=== PATIENT | female | born 1935 | race Caucasian/White ===

== ENCOUNTER 2017-03-08 09:35 | Observation (INO) | payer MEDICARE ==
[2017-03-08] VITALS (7 sets, daily range): BP systolic 136–203; BP diastolic 67–106; PULSE 65–93; RESP 15–18; TEMP 97.6–97.8; O2SAT 95–99
[~2017-03-08] VITALS: Ht 160 cm; Wt 64.0 kg
[~2017-03-08 09:35] MED LIST: ALEN70TA39 PO; ARIC10TA PO; CALCTAB38 PO; CYAN1000P SQ; METO50TA PO; VITA200017 PO
[2017-03-08] MEDS ORDERED: SODIUM CHLORIDE 0.9% FLUSH 5 ML FLUSH IV FLUSH PRN (10:15)
--- NOTE | 2017-03-08 10:24 | PD ---
HPI Chief Complaint: Altered Mental Status Time Seen by Provider: 10:05 Travel History International Travel<30 days: No Contact w/Intl Traveler<30days: No Traveled to known affect area: No History of Present Illness HPI This is an 81-year-old female with a history of Alzheimer's dementia, who presents with her daughter with complaints of worsening mental status changes over one and half weeks. Daughter states that over the last week and a half, she's become progressively more confused and not acting her normal self. Daughter also reports that she's concerned that she is a danger to herself. Daughter reports that this morning they found her out with her for be in the street in the cold weather. She states that she and the mother's significant other are trying to care for over having a much more difficult time since she is now much more confused and wandering off. There is no reported fevers, chills. There is no reported cough or shortness of breath. Daughter reports that her mother's only been eating hot dogs for several months now. She reports that they're seen by Dr. Sapp who ordered an outpatient MRI and EEG. She is concerned that she may be having mini strokes or TIAs. PFSH Past Medical History Asthma: No Autoimmune Disease: No Blood Disorders: No Anxiety: No Depression: No Heart Rhythm Problems: No Cancer: No Cardiac Catheterization: No Cardiovascular Problems: Yes (STENTS X 2, RI) High Cholesterol: No Chemotherapy: No Chest Pain: Yes Congestive Heart Failure: No COPD: No Cerebrovascular Accident: No Diabetes: No Diminished Hearing: No Endocrine: No Gastrointestinal Disorders: Yes (DIVERTICULITIS) GERD: No Glaucoma: No Genitourinary: No Headaches: No Hepatitis: No Hiatal Hernia: No Hypertension: Yes Immune Disorder: No Kidney Stones: No Musculoskeletal: Yes (LEFT KNEE ARTHRITIS) Neurologic: Yes (FORGETFUL--ON ARICEPT) Psychiatric: No Reproductive: No Respiratory: No Migraines: No Myocardial Infarction: No Radiation Therapy: No Renal Failure: No Seizures: No Sickle Cell Disease: No Sleep Apnea: No Thyroid Disease: No Ulcer: No Past Surgical History Abdominal Surgery: Yes (POLYPS REMOVED DURING A COLONOSCOPY) AICD: No Appendectomy: No Arteriovenous Shunt: No Cardiac Surgery: No Cholecystectomy: No Coronary Artery Bypass Graft: No Ear Surgery: No Endocrine Surgery: No Eye Surgery: Yes (RIGHT CATARACT EXTRACTION ) Genitourinary Surgery: No Gynecologic Surgery: Yes (HYSTERECTOMY) Hysterectomy: Yes Insulin Pump: No Joint Replacement: No Oral Surgery: No Pacemaker: No Thoracic Surgery: No Other Surgery: Yes Family History Family Myocardial Infarction: Yes (MOM) Social History Alcohol Use: No Tobacco Use: No Substance Use: No Allergies-Medications (Allergen,Severity, Reaction): Coded Allergies: codeine (Unverified Allergy, Severe, 03/08/17) NAUSEA, AGITATED morphine (Unverified Allergy, Severe, 03/08/17) NAUSEA, AGITATION Sulfa (Sulfonamide Antibiotics) (Verified Allergy, Unknown, 03/08/17) diphenhydramine (Verified Allergy, Unknown, 03/08/17) oxycodone (Verified Allergy, Unknown, 03/08/17) Reported Meds & Prescriptions Reported Meds & Active Scripts Active Reported Memantine 10 Mg Tab 10 Mg PO DAILY Atorvastatin (Atorvastatin Calcium) 10 Mg Tab 10 Mg PO HS Amlodipine (Amlodipine Besylate) 2.5 Mg Tab 2.5 Mg PO DAILY Metoprolol Tartrate 50 mg (Metoprolol Tartrate) 50 Mg Tab 50 Mg PO DAILY Vitamin B12 (Cyanocobalamin) 1,000 Mcg/Ml Inj 1,000 Mcg SQ MONTHLY Vitamin D3 Super Strength (Cholecalciferol) 2,000 Unit Cap 2,000 Unit PO DAILY Alendronate Sodium 70 Mg Tab 70 Mg PO Q7D Aricept (Donepezil HCl) 10 Mg Tab 10 Mg PO HS Review of Systems ROS Limitations: Altered Mental Status (unable to obtain review of systems from patient as she is severely Alzheimer's dementia.) Except as stated in HPI: all other systems reviewed are Neg Physical Exam Narrative GENERAL: Well-developed well-nourished female in no acute distress. SKIN: Focused skin assessment warm/dry. HEAD: Atraumatic. Normocephalic. EYES: No scleral icterus. No injection or drainage. ENT: No nasal bleeding or discharge. Mucous membranes pink and moist. NECK: Trachea midline. Supple. CARDIOVASCULAR: Regular rate and rhythm. No murmur appreciated. RESPIRATORY: No accessory muscle use. Clear to auscultation. Breath sounds equal bilaterally. GASTROINTESTINAL: Abdomen soft, non-tender, nondistended. MUSCULOSKELETAL: No obvious deformities. No clubbing. No cyanosis. No edema. NEUROLOGICAL: Awake and confused. No obvious cranial nerve deficits. Motor grossly within normal limits. Normal speech. Data Data Last Documented VS Vital Signs Date Time Temp Pulse Resp B/P (MAP) Pulse Ox O2 Delivery O2 Flow Rate FiO2 03/08/17 10:17 18 98 Room Air 03/08/17 09:37 97.8 93 Orders Orders Electrocardiogram (03/08/17 10:05) Ammonia (03/08/17 10:05) Creatine Kinase (Cpk) (03/08/17 10:05) Troponin I (03/08/17 10:05) Thyroid Stimulating Hormone (03/08/17 10:05) Urinalysis - C+S If Indicated (03/08/17 10:05) Chest, Single Ap (03/08/17 10:05) Blood Glucose (03/08/17 10:05) Ecg Monitoring (03/08/17 10:05) Iv Access Insert/Monitor (03/08/17 10:05) Oximetry (03/08/17 10:05) Sodium Chloride 0.9% Flush (Ns Flush) (03/08/17 10:15) Urine Culture (03/08/17 10:25) Complete Blood Count With Diff (03/08/17 11:28) Comprehensive Metabolic Panel (03/08/17 11:47) Ceftriaxone Inj (Rocephin Inj) (03/08/17 12:30) Azithromycin Inj (Zithromax Inj) (03/08/17 12:30) Amlodipine (Norvasc) (03/09/17 09:00) Atorvastatin (Lipitor) (03/08/17 21:00) Memantine (Namenda) (03/09/17 09:00) Metoprolol Tartrate (Lopressor) (03/09/17 09:00) Vitamin B12 (03/08/17 13:08) Pill Splitter (Pill Splitter) (03/08/17 13:30) Place In Observation (03/08/17 ) Vital Signs (Adult) Q4H (03/08/17 13:32) Activity Oob With Assistance (03/08/17 13:32) Diet Heart Healthy (03/08/17 Lunch) Sodium Chloride 0.9% Flush (Ns Flush) (03/08/17 13:45) Sodium Chloride 0.9% Flush (Ns Flush) (03/08/17 21:00) Acetaminophen (Tylenol) (03/08/17 13:45) Ondansetron Inj (Zofran Inj) (03/08/17 13:45) Basic Metabolic Panel (Bmp) (03/09/17 06:00) Complete Blood Count With Diff (03/09/17 06:00) Resp Oxygen Tony C Titrat 1-4 L (03/08/17 ) Pt Request For Service (03/08/17 13:32) Scd Bilateral/Knee High EAMON.BID (03/08/17 13:32) Naloxone Inj (Narcan Inj) (03/08/17 13:45) Docusate Sodium-Senna (Esther-Colace) (03/08/17 21:00) Magnesium Hydroxide Liq (Milk Of Magnesi (03/08/17 13:45) Mri Brain W/O Contrast (03/08/17 ) Case Management Consult (03/08/17 ) Eeg Study (03/08/17 ) Admit Order (Ed Use Only) (03/08/17 13:42) Labs Laboratory Tests Test 03/08/17 10:10 03/08/17 10:12 03/08/17 10:25 White Blood Count 7.8 TH/MM3 Red Blood Count 4.52 MIL/MM3 Hemoglobin 13.4 GM/DL Hematocrit 39.9 % Mean Corpuscular Volume 88.2 FL Mean Corpuscular Hemoglobin 29.6 PG Mean Corpuscular Hemoglobin Concent 33.6 % Red Cell Distribution Width 14.5 % Platelet Count 237 TH/MM3 Mean Platelet Volume 8.3 FL Neutrophils (%) (Auto) 78.9 % Lymphocytes (%) (Auto) 13.6 % Monocytes (%) (Auto) 6.7 % Eosinophils (%) (Auto) 0.7 % Basophils (%) (Auto) 0.1 % Neutrophils # (Auto) 6.1 TH/MM3 Lymphocytes # (Auto) 1.1 TH/MM3 Monocytes # (Auto) 0.5 TH/MM3 Eosinophils # (Auto) 0.1 TH/MM3 Basophils # (Auto) 0.0 TH/MM3 CBC Comment DIFF FINAL Differential Comment Ammonia LESS THAN 10 MCMOL/L Total Creatine Kinase 80 U/L Troponin I LESS THAN 0.02 NG/ML Thyroid Stimulating Hormone 3rd Gen 1.800 uIU/ML Urine Color YELLOW Urine Turbidity HAZY Urine pH 5.5 Urine Specific [place] 1.012 Urine Protein NEG mg/dL Urine Glucose (UA) NEG mg/dL Urine Ketones NEG mg/dL Urine Occult Blood SMALL Urine Nitrite NEG Urine Bilirubin NEG Urine Urobilinogen LESS THAN 2.0 MG/DL Urine Leukocyte Esterase MOD Urine RBC 2 /hpf Urine WBC 2 /hpf Urine Squamous Epithelial Cells 1 /hpf Urine Amorphous Sediment RARE Urine Bacteria MANY /hpf Urine Mucus FEW /lpf Microscopic Urinalysis Comment CATH-CULTURE IND MDM Medical Decision Making Medical Screen Exam Complete: Yes Emergency Medical Condition: Yes Differential Diagnosis Worsening dementia versus UTI versus pneumonia versus metabolic drainage. Narrative Course This is a 81-year-old female with history of Alzheimer's dementia, presents here with her daughter with complaints of worsening mental status changes. The patient has what appears to be early pneumonia on chest x-ray. She also has a UTI. She's been given Rocephin and Zithromax. The daughter is wishing for her to be placed in a alf facility. I spoke with Dr. Orlando Harrison, [facility] hospitalist, who will be admitting the patient under observation. He will work on working with the family to try to get her placed. Diagnosis Primary Impression: Pneumonia Additional Impressions: UTI (urinary tract infection) Alzheimer's dementia, worsening History of hypertension History of hyperlipidemia Admitting Information Admitting Physician Requests: Observation Pratik Rider MD Mar 08, 2017 10:24
--- NOTE | 2017-03-08 10:28 | RADRPT ---
EXAM DATE/TIME: 03/08/2017 10:17 [facility] COMPARISON: No previous studies available for comparison. INDICATIONS : Syncope, altered mental stauts MEDICAL HISTORY : Cardiovascular disease. altered mental status SURGICAL HISTORY : Coronary artery stent. ENCOUNTER: Initial ACUITY: 2 days PAIN SCORE: Non-responsive. LOCATION: Bilateral chest FINDINGS: Left lower lobe retrocardiac airspace consolidation. Cardiomediastinal contours are within normal courtney its given portable technique. Bony thorax is intact. CONCLUSION: 1. Left lower lobe airspace consolidation which may reflect atelectasis although pneumonia or aspirat ion cannot be excluded in the appropriate clinical setting. Liang Muro MD on March 08, 2017 at 10:26 Board Certified Radiologist. This report was verified electronically.
[2017-03-08 10:48] LABS: AMORPHOUS SEDIMENT, URINE RARE; BACTERIA, URINE MANY /hpf; BILIRUBIN, URINE NEG (NEG); BLOOD, URINE SMALL (NEG); GLUCOSE,URINE NEG (NEG); KETONE, URINE NEG (NEG); MUCUS URINE FEW /lpf (OCC); NITRITE,URINE NEG (NEG); PH, URINE 5.5 (5.0-8.5); SQUAMOUS EPITHELIAL CELL URINE 1 /hpf (0-5); URINE COLOR YELLOW (YELLW/STRAW); URINE LEUKOCYTE ESTERASE MOD (NEG)
[2017-03-08 11:19] LABS: TROPONIN I LESS THAN 0.02 NG/ML (0.02-0.05)
[2017-03-08 11:51] LABS: AUTOMATED NEUTROPHIL # 6.1 TH/MM3 (1.8-7.7); BASOPHIL % 0.1 % (0.0-2.0); EOSINOPHIL # 0.1 TH/MM3 (0-0.4); EOSINOPHIL % 0.7 % (0.0-4.0); HEMATOCRIT 39.9 % (35.0-46.0); HEMOGLOBIN 13.4 GM/DL (11.6-15.3); LYMPH % 13.6 % (9.0-44.0); LYMPHOCYTE # 1.1 TH/MM3 (1.0-4.8); MEAN CELL VOLUME 88.2 FL (80.0-100.0); MEAN CORPUSCULAR HEMOGLOBIN 29.6 PG (27.0-34.0); MEAN CORPUSCULAR HGB CONC 33.6 % (32.0-36.0); MEAN PLATELET VOLUME 8.3 FL (7.0-11.0); MONO % 6.7 % (0.0-8.0); MONOCYTE # 0.5 TH/MM3 (0-0.9); NEUT % 78.9 % (16.0-70.0); PLATELET COUNT 237 TH/MM3 (150-450); RED BLOOD COUNT 4.52 MIL/MM3 (4.00-5.30); RED CELL DISTRIBUTION WIDTH 14.5 % (11.6-17.2); WHITE BLOOD COUNT 7.8 TH/MM3 (4.0-11.0)
[2017-03-08] MEDS ORDERED: cefTRIAXone INJ 1,000 MG in SODIUM CHLORIDE 0.9% INJ 100 ML IV ONE (12:30)
[2017-03-08] MEDS ORDERED: AZITHROMYCIN INJ 500 MG in SODIUM CHLOR 0.9% 250 ML INJ 250 ML IV ONE (12:30)
[2017-03-08] MEDS ORDERED: ATOR10TA15 PO (12:52)
[2017-03-08] MEDS ORDERED: AMLO2.5T PO (12:52)
[2017-03-08] MEDS ORDERED: MEMA1TAB2 PO (12:52)
--- NOTE | 2017-03-08 13:27 | EKG ---
Date Performed: 03/08/2017 Time Performed: 10:21:07 PTAGE: 81 years EKG: Sinus rhythm NONSPECIFIC ST & T-WAVE ABNORMALITY BORDERLINE ECG PREVIOUS TRACING : 05/25/2006 05.45 Compared to prior tracing no significant change DOCTOR: Serafin Fierro Interpretating Date/Time 03/08/2017 13:25:02
[2017-03-08] MEDS ORDERED: PILL SPLITTER OTHER PRN (13:30)
--- NOTE | 2017-03-08 13:30 | HHI.HP ---
HPI Service [facility] Hospitalists Primary Care Physician Marcial Wilkerson MD Admission Diagnosis Chief Complaint: worsening confusion Travel History International Travel<30 Days: No Contact w/Intl Traveler <30 Da: No Traveled to Known Affected Are: No History of Present Illness This is an 81 year old female patient with a past medical history which includes Alzheimer's follow by Dr. Sapp, CAD cardiac stents, HTN. Patient unable to provide meaningful, information gathered from patient as well as patient's significant other and daughter who are at bedside. Per significant other patient is forgetful at baseline but over the last 3 weeks patient's mental status has been mush worse. Prior to three weeks ago patient was able to dress herself with help, talk in sentences with help and color in coloring books. Over the past 3 weeks patient has been unable to make meaningful conversation, patient wonders aimlessly, will put on two pairs of clothes at the same time and is unable to stay home alone. There is no increase in urinary frequency. No fevers, chills, N/V/D/C, chest pain or shortness of breath. Review of Systems ROS Limitations: Poor Historian Constitutional: COMPLAINS OF: Fatigue, DENIES: Fever, Chills Eyes: DENIES: Blurred vision, Diplopia, Vision loss Respiratory: DENIES: Cough, Sputum production, Shortness of breath Cardiovascular: DENIES: Chest pain, Palpitations, Lower Extremity Edema Gastrointestinal: DENIES: Abdominal pain, Constipation, Diarrhea Neurologic: DENIES: Abnormal gait, Headache, Localized weakness Psychiatric: COMPLAINS OF: Confusion, DENIES: Anxiety, Depression Past Family Social History Past Medical History Alzheimer dementia, CAD cardiac stents, HTN Past Surgical History cardiac stents x 2 TAHBSO cataract surgery Reported Medications Memantine 10 Mg Tab 10 Mg PO DAILY Atorvastatin (Atorvastatin Calcium) 10 Mg Tab 10 Mg PO HS Amlodipine (Amlodipine Besylate) 2.5 Mg Tab 2.5 Mg PO DAILY Metoprolol Tartrate 50 mg (Metoprolol Tartrate) 50 Mg Tab 50 Mg PO DAILY Vitamin B12 (Cyanocobalamin) 1,000 Mcg/Ml Inj 1,000 Mcg SQ MONTHLY Vitamin D3 Super Strength (Cholecalciferol) 2,000 Unit Cap 2,000 Unit PO DAILY Alendronate Sodium 70 Mg Tab 70 Mg PO Q7D Aricept (Donepezil HCl) 10 Mg Tab 10 Mg PO HS Allergies: Coded Allergies: codeine (Unverified Allergy, Severe, 03/08/17) NAUSEA, AGITATED morphine (Unverified Allergy, Severe, 03/08/17) NAUSEA, AGITATION Sulfa (Sulfonamide Antibiotics) (Verified Allergy, Unknown, 03/08/17) diphenhydramine (Verified Allergy, Unknown, 03/08/17) oxycodone (Verified Allergy, Unknown, 03/08/17) Active Ordered Medications Current Medications Medications (Trade) Dose Ordered Sig/Sandra Route Start Time Stop Time Status Last Admin (NS Flush) 2 ml UNSCH PRN IV FLUSH 03/08/17 10:15 Azithromycin 500 mg/Sodium Chloride 250 ml @ 250 mls/hr ONCE ONCE IV 03/08/17 12:30 03/08/17 13:29 Family History mother CVAs Social History lives at home with significant other of 20 years No report of ETOH use, tobacco use or illicit drug use Physical Exam Vital Signs Vital Signs Date Time Temp Pulse Resp B/P (MAP) Pulse Ox O2 Delivery O2 Flow Rate FiO2 03/08/17 10:17 18 98 Room Air 03/08/17 09:37 97.8 93 15 203/98 (133) 95 Physical Exam GENERAL: This is an elderly 81 year old female, well-developed patient SKIN: No rashes, ecchymoses or lesions. Cool and dry. HEAD: Atraumatic. Normocephalic. No temporal or scalp tenderness. EYES: Extraocular motions intact. No scleral icterus. No injection or drainage. CARDIOVASCULAR: Regular rate and rhythm RESPIRATORY: Clear to auscultation. Breath sounds equal bilaterally. No wheezes , rales, or rhonchi. GASTROINTESTINAL: Abdomen soft, non-tender, nondistended. MUSCULOSKELETAL: Extremities without clubbing, cyanosis, or edema. No joint tenderness, effusion, or edema noted. No calf tenderness. Negative Homans sign bilaterally. NEUROLOGICAL: Awake, disoriented x 3. Motor and sensory grossly within normal limits. 4 out of 5 muscle strength in all muscle groups. PAtient able to tell the stat she was born in, but is unable to provide full name, , current location, month or year Laboratory Laboratory Tests Test 03/08/17 10:10 03/08/17 10:12 03/08/17 10:25 White Blood Count 7.8 Red Blood Count 4.52 Hemoglobin 13.4 Hematocrit 39.9 Mean Corpuscular Volume 88.2 Mean Corpuscular Hemoglobin 29.6 Mean Corpuscular Hemoglobin Concent 33.6 Red Cell Distribution Width 14.5 Platelet Count 237 Mean Platelet Volume 8.3 Neutrophils (%) (Auto) 78.9 Lymphocytes (%) (Auto) 13.6 Monocytes (%) (Auto) 6.7 Eosinophils (%) (Auto) 0.7 Basophils (%) (Auto) 0.1 Neutrophils # (Auto) 6.1 Lymphocytes # (Auto) 1.1 Monocytes # (Auto) 0.5 Eosinophils # (Auto) 0.1 Basophils # (Auto) 0.0 CBC Comment DIFF FINAL Differential Comment Ammonia LESS THAN 10 Total Creatine Kinase 80 Troponin I LESS THAN 0.02 Thyroid Stimulating Hormone 3rd Gen 1.800 Urine Color YELLOW Urine Turbidity HAZY Urine pH 5.5 Urine Specific [place] 1.012 Urine Protein NEG Urine Glucose (UA) NEG Urine Ketones NEG Urine Occult Blood SMALL Urine Nitrite NEG Urine Bilirubin NEG Urine Urobilinogen LESS THAN 2.0 Urine Leukocyte Esterase MOD Urine RBC 2 Urine WBC 2 Urine Squamous Epithelial Cells 1 Urine Amorphous Sediment RARE Urine Bacteria MANY Urine Mucus FEW Microscopic Urinalysis Comment CATH-CULTURE IND Date/Time Source Procedure Growth Status 03/08/17 10:25 Urine Catheterized Urine Urine Culture Pending Received Result Diagram: 03/08/17 1010 Imaging Last Impressions Chest X-Ray 03/08/17 1005 Signed Impressions: Service Date/Time: Wednesday, March 08, 2017 10:17 - CONCLUSION: 1. Left lower lobe airspace consolidation which may reflect atelectasis although pneumonia or aspiration cannot be excluded in the appropriate clinical setting. Liang Muro MD [place] VTE Risk Assessment Caprini VTE Risk Assessment: Mod/High Risk (score >= 2) Caprini Risk Assessment Model Point Value = 1 Point Value = 2 Point Value = 3 Point Value = 5 Age 41-60 Minor surgery BMI > 25 kg/m2 Swollen legs Varicose veins or History of unexplained or recurrent spontaneous Oral contraceptives or hormone replacement Sepsis (< 1 month) Serious lung disease, including pneumonia (< 1 month) Abnormal pulmonary function Acute myocardial infarction Congestive heart failure (< 1 month) History of inflammatory bowel disease Medical patient at bed rest Age 61-74 Arthroscopic surgery Major open surgery (> 45 min) Laparoscopic surgery (> 45 min) Malignancy Confined to bed (> 72 hours) Immobilizing plaster cast Central venous access Age >= 75 History of VTE Family history of VTE Factor V Leiden Prothrombin [id number] Lupus anticoagulant Anticardiolipin antibodies Elevated serum homocysteine Heparin-induced thrombocytopenia Other congenital or acquired thrombophilia Stroke (< 1 month) Elective arthroplasty Hip, pelvis, or leg fracture Acute spinal cord injury (< 1 month) Prophylaxis Regimen Total Risk Factor Score Risk Level Prophylaxis Regimen 0-1 Low Early ambulation 2 Moderate Order ONE of the following: *Sequential Compression Device (SCD) *Heparin 5000 units SQ BID 3-4 Higher Order ONE of the following medications: *Heparin 5000 units SQ TID *Enoxaparin/Lovenox 40 mg SQ daily (WT < 150 kg, CrCl > 30 mL/min) *Enoxaparin/Lovenox 30 mg SQ daily (WT < 150 kg, CrCl > 10-29 mL/min) *Enoxaparin/Lovenox 30 mg SQ BID (WT < 150 kg, CrCl > 30 mL/min) AND/OR *Sequential Compression Device (SCD) 5 or more Highest Order ONE of the following medications: *Heparin 5000 units SQ TID (Preferred with Epidurals) *Enoxaparin/Lovenox 40 mg SQ daily (WT < 150 kg, CrCl > 30 mL/min) *Enoxaparin/Lovenox 30 mg SQ daily (WT < 150 kg, CrCl > 10-29 mL/min) *Enoxaparin/Lovenox 30 mg SQ BID (WT < 150 kg, CrCl > 30 mL/min) AND *Sequential Compression Device (SCD) Assessment and Plan Problem List: (1) Alzheimer disease ICD Codes: G30.9 - Alzheimer's disease, unspecified Plan: AMS likely secondary to worsening dementia WBC 7.8 CXR reviewed and reveals: left lower lobe airspace consolidation which may reflect atelectasis although pneumonia or aspiration cannot be excluded in the appropriate clinical setting UA reviewed reveals moderate leukocyte esterase Rocephin and azithromycin started in ER. continue Rocephin daily and await C&S MRI and EEG ordered and pending receck labs in AM HTN Continue patient's home blood pressure Hyperlipidemia Continue home atorvastatin CAD s/p cardiac stents x2 continue atorvastatin DVT prophylaxis with SCDs IF work up negative plan to DC to SNF tomorrow (2) HTN (hypertension) ICD Codes: I10 - Essential (primary) hypertension (3) Hyperlipidemia ICD Codes: E78.5 - Hyperlipidemia, unspecified Assessment and Plan Patient examined. Assessment and plan formulated with Ludmila Domingo PA-C. I agree with the above. dementia with sudden deterioration of mental status over past 3 weeks. eval for metabolic/infectious disturbance. r/o ischemic event. long discussion with pt and family. will need placement. Kaley Kirk Mar 08, 2017 13:30 Orlando Harrison MD Mar 08, 2017 16:25
[2017-03-08] MEDS ORDERED: ACETAMINOPHEN 325 MG TAB PO PRN (13:45)
[2017-03-08] MEDS ORDERED: SODIUM CHLORIDE 0.9% FLUSH 10 ML FLUSH IV FLUSH PRN (13:45)
[2017-03-08] MEDS ORDERED: MAGNESIUM HYDROXIDE SUSP 30 ML CUP PO PRN (13:45)
[2017-03-08] MEDS ORDERED: NALOXONE HCL 0.4 MG/ML AMP IV PUSH PRN (13:45)
[2017-03-08] MEDS ORDERED: ONDANSETRON HCL 4 MG/2 ML VIAL IVP PRN (13:45)
[2017-03-08 14:06] LABS: AST (GOT) 22 U/L (15-37); BICARBONATE 25.9 MEQ/L (21.0-32.0); BLOOD UREA NITROGEN 13 MG/DL (7-18); CALCIUM 9.3 MG/DL (8.5-10.1); CHLORIDE 105 MEQ/L (98-107); GLOMERULAR FILTRATION RATE 47 ML/MIN (>89); GLUCOSE,RANDOM 120 MG/DL (74-106); SODIUM (NA) 141 MEQ/L (136-145)
[2017-03-08 14:07] LABS: ALT (GPT) 16 U/L (10-53)
[2017-03-08 14:09] LABS: ALKALINE PHOSPHATASE 52 U/L (45-117); TOTAL BILIRUBIN ADULT 0.8 MG/DL (0.2-1.0); TOTAL PROTEIN 7.9 GM/DL (6.4-8.2)
[2017-03-08] MEDS ORDERED: LORazepam 2 MG/ML VIAL IV PUSH ONE ×2 (14:15→18:15)
--- NOTE | 2017-03-08 15:29 | RADRPT ---
EXAM DATE/TIME: 03/08/2017 14:45 [facility] COMPARISON: No previous studies available for comparison. EXTERNAL COMPARISON : [facility], MRI Brain w.wo March 2013 INDICATIONS : Altered mental status. MEDICAL HISTORY : Hypertension. SURGICAL HISTORY : Coronary artery stent. Hysterectomy. ENCOUNTER: Initial ACUITY: 1 month PAIN SCORE: Nonresponsive. LOCATION: Bilateral cranial TECHNIQUE: Multiplanar, multisequence MRI of the brain was performed without contrast. FINDINGS: Marked periventricular white matter changes are noted. There is no parenchymal hemorrhage, acute inf arction or mass lesion. Marked atrophy is present. There is no restricted diffusion to suggest isch emic event. There is no parenchymal hemorrhage The posterior fossa is unremarkable Mildly prominent empty sella is noted. CONCLUSION: Marked atrophy with periventricular white matter changes otherwise are negative for an acute process. Bran Villafana MD FACR on March 08, 2017 at 15:26 Board Certified Radiologist. This report was verified electronically.
--- NOTE | 2017-03-08 15:31 | RADRPT ---
EXAM DATE/TIME: 03/08/2017 14:45 [facility] COMPARISON: MRI BRAIN W/O CONTRAST, March 08, 2017, 14:45. INDICATIONS : Altered mental status. MEDICAL HISTORY : Hypertension. SURGICAL HISTORY : Hysterectomy. Coronary artery stent. ENCOUNTER: Initial ACUITY: 1 month PAIN SCORE: Nonresponsive. LOCATION: Bilateral cranial Please note a normal MRA of the brain does not entirely exclude the possibility of a small aneurysm, nor the possibility of distal intracranial vessel disease. TECHNIQUE: 3D time of flight MRA was performed. Source images, multiplanar STS MIP, and 3D volume MIP reconstru ctions were reviewed. FINDINGS: There is poor visualization of the anterior cerebral artery and middle cerebral artery on the right h owever there is no restricted diffusion by MRI to suggest an ischemic event. Left hemisphere vessels are unremarkable. As artery is widely patent. CONCLUSION: Poor flow in the right hemisphere vessels without ischemia by MRI. Cerebral perfusion study by eithe r MRI or CT scan may be of benefit. Bran Villafana MD FACR on March 08, 2017 at 15:27 Board Certified Radiologist. This report was verified electronically.
[2017-03-08] MEDS ORDERED: POTASSIUM CHLORIDE 20 MEQ CONTROLLED RELEASE TAB PO ONE (16:30)
[2017-03-08] MEDS: DOCUSATE SODIUM 50 MG/SENNA 8.6 MG TAB PO SCH (21:00)
[2017-03-08] MEDS: ATORVASTATIN 10 MG TAB PO SCH (21:00)
[2017-03-08] MEDS: SODIUM CHLORIDE 0.9% FLUSH 10 ML FLUSH IV FLUSH SCH (23:36)
[2017-03-09] VITALS (8 sets, daily range): BP systolic 128–162; BP diastolic 67–78; PULSE 65–82; RESP 16–24; TEMP 97.5–98.6; O2SAT 96–99
[2017-03-09 06:17] LABS: AUTOMATED NEUTROPHIL # 5.3 TH/MM3 (1.8-7.7); BASOPHIL % 0.3 % (0.0-2.0); EOSINOPHIL # 0.1 TH/MM3 (0-0.4); EOSINOPHIL % 1.7 % (0.0-4.0); HEMATOCRIT 39.7 % (35.0-46.0); HEMOGLOBIN 13.3 GM/DL (11.6-15.3); LYMPH % 19.2 % (9.0-44.0); LYMPHOCYTE # 1.4 TH/MM3 (1.0-4.8); MEAN CELL VOLUME 89.3 FL (80.0-100.0); MEAN CORPUSCULAR HEMOGLOBIN 29.9 PG (27.0-34.0); MEAN CORPUSCULAR HGB CONC 33.5 % (32.0-36.0); MEAN PLATELET VOLUME 7.7 FL (7.0-11.0); MONO % 7.6 % (0.0-8.0); MONOCYTE # 0.6 TH/MM3 (0-0.9); NEUT % 71.2 % (16.0-70.0); PLATELET COUNT 201 TH/MM3 (150-450); RED BLOOD COUNT 4.45 MIL/MM3 (4.00-5.30); RED CELL DISTRIBUTION WIDTH 15.1 % (11.6-17.2); WHITE BLOOD COUNT 7.4 TH/MM3 (4.0-11.0)
[2017-03-09 06:46] LABS: BICARBONATE 29.1 MEQ/L (21.0-32.0); CALCIUM 8.6 MG/DL (8.5-10.1); CREATININE 1.22 MG/DL (0.50-1.00)
--- NOTE | 2017-03-09 08:49 | HHI.PR ---
Subjective Remarks Patient pleasantly confused and cooperative at this time Objective Vitals Vital Signs Date Time Temp Pulse Resp B/P (MAP) Pulse Ox O2 Delivery O2 Flow Rate FiO2 03/09/17 07:33 98.6 82 24 143/67 (92) 98 03/09/17 06:05 Nasal Cannula 3.00 03/09/17 04:10 98.0 67 18 128/67 (87) 99 03/09/17 00:38 97.8 65 16 130/70 (90) 98 03/08/17 19:52 97.6 65 18 136/67 (90) 99 03/08/17 16:58 97.6 65 16 137/68 (91) 99 03/08/17 16:30 03/08/17 15:00 66 18 154/76 (102) 97 Room Air 03/08/17 13:00 66 18 165/81 (109) 96 Room Air 03/08/17 11:00 68 16 156/106 (123) 96 Room Air 03/08/17 10:17 18 98 Room Air 03/08/17 09:37 97.8 93 15 203/98 (133) 95 Result Diagram: 03/09/17 0555 03/09/17 0555 Other Results Laboratory Tests Test 03/08/17 10:10 03/08/17 10:12 03/08/17 10:25 03/09/17 05:55 White Blood Count 7.8 TH/MM3 7.4 TH/MM3 Red Blood Count 4.52 MIL/MM3 4.45 MIL/MM3 Hemoglobin 13.4 GM/DL 13.3 GM/DL Hematocrit 39.9 % 39.7 % Mean Corpuscular Volume 88.2 FL 89.3 FL Mean Corpuscular Hemoglobin 29.6 PG 29.9 PG Mean Corpuscular Hemoglobin Concent 33.6 % 33.5 % Red Cell Distribution Width 14.5 % 15.1 % Platelet Count 237 TH/MM3 201 TH/MM3 Mean Platelet Volume 8.3 FL 7.7 FL Neutrophils (%) (Auto) 78.9 % 71.2 % Lymphocytes (%) (Auto) 13.6 % 19.2 % Monocytes (%) (Auto) 6.7 % 7.6 % Eosinophils (%) (Auto) 0.7 % 1.7 % Basophils (%) (Auto) 0.1 % 0.3 % Neutrophils # (Auto) 6.1 TH/MM3 5.3 TH/MM3 Lymphocytes # (Auto) 1.1 TH/MM3 1.4 TH/MM3 Monocytes # (Auto) 0.5 TH/MM3 0.6 TH/MM3 Eosinophils # (Auto) 0.1 TH/MM3 0.1 TH/MM3 Basophils # (Auto) 0.0 TH/MM3 0.0 TH/MM3 CBC Comment DIFF FINAL DIFF FINAL Differential Comment Blood Urea Nitrogen 13 MG/DL 15 MG/DL Creatinine 1.10 MG/DL 1.22 MG/DL Random Glucose 120 MG/DL 88 MG/DL Total Protein 7.9 GM/DL Albumin 4.0 GM/DL Calcium Level 9.3 MG/DL 8.6 MG/DL Alkaline Phosphatase 52 U/L Aspartate Amino Transf (AST/SGOT) 22 U/L Alanine Aminotransferase (ALT/SGPT) 16 U/L Total Bilirubin 0.8 MG/DL Sodium Level 141 MEQ/L 145 MEQ/L Potassium Level 3.2 MEQ/L 3.5 MEQ/L Chloride Level 105 MEQ/L 109 MEQ/L Carbon Dioxide Level 25.9 MEQ/L 29.1 MEQ/L Anion Gap 10 MEQ/L 7 MEQ/L Estimat Glomerular Filtration Rate 47 ML/MIN 42 ML/MIN Ammonia LESS THAN 10 MCMOL/L Total Creatine Kinase 80 U/L Troponin I LESS THAN 0.02 NG/ML Vitamin B12 Level 458 PG/ML Thyroid Stimulating Hormone 3rd Gen 1.800 uIU/ML Urine Color YELLOW Urine Turbidity HAZY Urine pH 5.5 Urine Specific [place] 1.012 Urine Protein NEG mg/dL Urine Glucose (UA) NEG mg/dL Urine Ketones NEG mg/dL Urine Occult Blood SMALL Urine Nitrite NEG Urine Bilirubin NEG Urine Urobilinogen LESS THAN 2.0 MG/DL Urine Leukocyte Esterase MOD Urine RBC 2 /hpf Urine WBC 2 /hpf Urine Squamous Epithelial Cells 1 /hpf Urine Amorphous Sediment RARE Urine Bacteria MANY /hpf Urine Mucus FEW /lpf Microscopic Urinalysis Comment CATH-CULTURE IND Imaging Last Impressions Chest X-Ray 03/08/17 1005 Signed Impressions: Service Date/Time: Wednesday, March 08, 2017 10:17 - CONCLUSION: 1. Left lower lobe airspace consolidation which may reflect atelectasis although pneumonia or aspiration cannot be excluded in the appropriate clinical setting. Liang Muro MD Objective Remarks GENERAL: This is an elderly 81 year old female, well-developed patient CARDIOVASCULAR: Regular rate and rhythm RESPIRATORY: Clear to auscultation. Breath sounds equal bilaterally. No wheezes , rales, or rhonchi. GASTROINTESTINAL: Abdomen soft, non-tender, nondistended. NEUROLOGICAL: Awake, disoriented x 3. Motor and sensory grossly within normal limits. 4 out of 5 muscle strength in all muscle groups. PAtient able to tell the stat she was born in, but is unable to provide full name, , current location, month or year A/P Problem List: (1) Alzheimer disease ICD Codes: G30.9 - Alzheimer's disease, unspecified Plan: AMS likely secondary to worsening dementia WBC 7.8 -> 7.4 CXR reviewed and reveals: left lower lobe airspace consolidation which may reflect atelectasis although pneumonia or aspiration cannot be excluded in the appropriate clinical setting UA reviewed reveals moderate leukocyte esterase Rocephin and azithromycin started in ER. continue Rocephin daily and await C&S MRI- marked atrophy with periventricular white matter changes otherwise are negative for acute process MRA- 4 flow in the right hemisphere ventricles without ischemia by MRI. Cerebral perfusion study by either MRI or CT scan may be of benefit MRI perfusion scan ordered. Discussed with commercial pest control technician and able to perform exam last night as patient was uncooperative will retry today EEG pending discussed with field service technician poultry plan to do EEG shortly Possible UTI UA reviewed neg protein, neg ketone, neg nitrates, MOD Leukocyte Esterase continue Rocephin daily await culture results HTN Continue patient's home blood pressure Hyperlipidemia Continue home atorvastatin CAD s/p cardiac stents x2 continue atorvastatin DVT prophylaxis with SCDs IF work up negative plan to DC to SNF once EEG and MRI perfusion scan completed Addendum 1650: EEG resulted and reviewed: This is an awake and drowsy EEG. The generalized background slowing may indicate an encephalopathic etiology maybe related to metabolic, medication effect or brain hypoxia. The absence of electrographic seizures or epileptiform discharges does not rule out the diagnosis of epilepsy. Clinical correlation is recommended. MRI perfusion scan read as a negative perfusion scan Urine culture shows gram neg rods DC order entered. Patient cleared for DC to SNF in stable condition, on home medications as prior to hospitalization with the addition of Levaquin 250mg PO daily x 5 days, activity and diet as tolerated. Patient to follow up with PCP in 1 week (2) HTN (hypertension) ICD Codes: I10 - Essential (primary) hypertension (3) Hyperlipidemia ICD Codes: E78.5 - Hyperlipidemia, unspecified Assessment and Plan Patient examined. Assessment and plan formulated with Kaley Kirk PA-C. I agree with the above. dementia with acute deterioration gnr uti. mri perfusion and eeg pending. pt family wants placement. apparently she is losing [facility]cp. will write for d/c by tomorrow. Kaley Kirk Mar 09, 2017 08:49 Orlando Harrison MD Mar 09, 2017 12:42
[2017-03-09] MEDS: DOCUSATE SODIUM 50 MG/SENNA 8.6 MG TAB PO SCH ×2 (10:36→21:00)
[2017-03-09] MEDS: MEMANTINE HCL 10 MG TAB PO SCH (10:36)
[2017-03-09] MEDS: METOPROLOL TARTRATE 50 MG TAB PO SCH (10:36)
[2017-03-09] MEDS: amLODIPine BESYLATE 5 MG TAB PO SCH (10:37)
[2017-03-09] MEDS: SODIUM CHLORIDE 0.9% FLUSH 10 ML FLUSH IV FLUSH SCH ×2 (10:40→21:02)
[2017-03-09] MEDS: LORazepam 0.5 MG TAB PO PRN ×2 (11:23→21:01)
[2017-03-09] MEDS ORDERED: cefTRIAXone INJ 1,000 MG in SODIUM CHLORIDE 0.9% INJ 100 ML IV SCH (12:00)
[2017-03-09] MEDS ORDERED: GADODIAMIDE PF 287 MG/ML 20 ML VIAL (for RAD MRI) IVCONTRAST ONE (14:02)
--- NOTE | 2017-03-09 14:13 | MG ---
cc: DEBBIE MANCERA MD, KIMBERLY Lab No: Date: 03/09/2017 : 1935 Sex: F REFERRING PHYSICIAN Dr. Kirk. MEDICAL HISTORY Worsening mental status over the past 1-1/2 weeks. Bilateral cataracts, hypertension, Alzheimer's dementia. MEDICATIONS Metoprolol tartrate, Aricept, alendronate sodium. DESCRIPTION The background activity is generally slow in the theta range, 5-6 Hz. There is excessive movement artifact. During the recording there was transitioned to stage II sleep. Hyperventilation was not done. Photic stimulation did not elicit a driving response.There were no electrographic seizures or epileptiform discharges noted. INTERPRETATION This is an awake and drowsy EEG. The generalized background slowing may indicate an encephalopathic etiology maybe related to metabolic, medication effect or brain hypoxia. The absence of electrographic seizures or epileptiform discharges does not rule out the diagnosis of epilepsy. Clinical correlation is recommended. Debbie Mancera MD RGO/BT /1:54 PM /2:06 PM [facility]
--- NOTE | 2017-03-09 14:13 | MG ---
cc: DEBBIE MANCERA MD, KIMBERLY Lab No: Date: 03/09/2017 : 1935 Sex: F REFERRING PHYSICIAN Dr. Kirk. MEDICAL HISTORY Worsening mental status over the past 1-1/2 weeks. Bilateral cataracts, hypertension, Alzheimer's dementia. MEDICATIONS Metoprolol tartrate, Aricept, alendronate sodium. DESCRIPTION The background activity is generally slow in the theta range, 5-6 Hz. There is excessive movement artifact. During the recording there was transitioned to stage II sleep. Hyperventilation was not done. Photic stimulation did not elicit a driving response.There were no electrographic seizures or epileptiform discharges noted. INTERPRETATION This is an awake and drowsy EEG. The generalized background slowing may indicate an encephalopathic etiology maybe related to metabolic, medication effect or brain hypoxia. The absence of electrographic seizures or epileptiform discharges does not rule out the diagnosis of epilepsy. Clinical correlation is recommended. Debbie Mancera MD RGO/BT /1:54 PM /2:06 PM [facility]
--- NOTE | 2017-03-09 16:37 | RADRPT ---
EXAM DATE/TIME: 03/09/2017 13:48 [facility] COMPARISON: MRA BRAIN W/O CONTRAST, March 08, 2017, 14:45. MRI BRAIN W/O CONTRAST, March 08, 2017, 14:45. INDICATIONS : Poor flow in the right hemisphere vessels on MRA without vessel truncation (right MCA and ALFRED) CONTRAST: 20 cc Omniscan (gadodiamide) IV MEDICAL HISTORY : Hypertension. SURGICAL HISTORY : Hysterectomy. Coronary artery stent. Cataracts. ENCOUNTER: Subsequent ACUITY: 2 day PAIN SCORE: 0/10 LOCATION: head. TECHNIQUE: Whole brain MR perfusion was performed. Parametric maps generated included time to peak, mean transi t time, cerebral blood volume and cerebral blood flow. FINDINGS: There is symmetric time to peak activity and in the frontoparietal region. Mean transit time and cer ebral blood flow is also symmetric. CONCLUSION: Negative perfusion scan. In particular, no significant asymmetry is seen in the right frontal and pa rietal lobe. Osvaldo Anne MD on March 09, 2017 at 16:29 Board Certified Radiologist. This report was verified electronically.
[2017-03-09] MEDS ORDERED: LEVO250T7 PO (16:47)
[2017-03-09] MEDS ORDERED: LORA-392 PO (16:51)
[2017-03-09] MEDS: LEVOFLOXACIN 250 MG TAB PO SCH (19:35)
[2017-03-09] MEDS: ATORVASTATIN 10 MG TAB PO SCH (21:02)
[2017-03-10 03:09] VITALS: BP 145/75; PULSE 87; RESP 18; TEMP 98; O2SAT 95
[2017-03-10 07:06] VITALS: BP 160/90; PULSE 91; RESP 24; TEMP 97.6; O2SAT 96
[2017-03-10] MEDS: SODIUM CHLORIDE 0.9% FLUSH 10 ML FLUSH IV FLUSH SCH (08:36)
[2017-03-10] MEDS: amLODIPine BESYLATE 5 MG TAB PO SCH (08:36)
[2017-03-10] MEDS: MEMANTINE HCL 10 MG TAB PO SCH (08:37)
[2017-03-10] MEDS: DOCUSATE SODIUM 50 MG/SENNA 8.6 MG TAB PO SCH (08:37)
[2017-03-10] MEDS: METOPROLOL TARTRATE 50 MG TAB PO SCH (08:37)
[2017-03-10] MEDS: LEVOFLOXACIN 250 MG TAB PO SCH (08:37)
--- NOTE | 2017-03-10 11:04 | HHI.PR ---
Subjective Remarks no events overnight. Objective Vitals dementia heart reg lung cta abd s/nt ext no edema Vital Signs Date Time Temp Pulse Resp B/P (MAP) Pulse Ox O2 Delivery O2 Flow Rate FiO2 03/10/17 07:06 97.6 91 24 160/90 (113) 96 03/10/17 03:09 98.0 87 18 145/75 (98) 95 03/09/17 23:52 98.1 80 18 149/70 (96) 97 03/09/17 20:33 97 21 03/09/17 20:00 98.0 80 18 162/78 (106) 96 03/09/17 15:53 97.5 76 22 136/68 (90) 97 03/09/17 12:04 97.8 69 22 145/73 (97) 97 Result Diagram: 03/09/17 0555 03/09/17 0555 Imaging Last Impressions Chest X-Ray 03/08/17 1005 Signed Impressions: Service Date/Time: Wednesday, March 08, 2017 10:17 - CONCLUSION: 1. Left lower lobe airspace consolidation which may reflect atelectasis although pneumonia or aspiration cannot be excluded in the appropriate clinical setting. Liang Muro MD A/P Problem List: (1) Alzheimer disease ICD Codes: G30.9 - Alzheimer's disease, unspecified Status: Acute Plan: Pt with chronic dementia and acute worsening of mental status could be related to the ecoli uti mri/a brain negative for acute cva. mra perfusion study of brain neg. eeg no sz activity metabolic w/up negative for any issues for mental status change. cont abx prn ativan pt will go to snf as pt family unable to care for her at home. (2) HTN (hypertension) ICD Codes: I10 - Essential (primary) hypertension Status: Chronic (3) Hyperlipidemia ICD Codes: E78.5 - Hyperlipidemia, unspecified Status: Chronic Orlando Harrison MD Mar 10, 2017 11:04
[2017-03-10 12:05] VITALS: BP 158/74; PULSE 79; RESP 20; TEMP 97.6; O2SAT 96
[2017-03-10] MEDS: LORazepam 0.5 MG TAB PO PRN (12:07)
== END 2017-03-10 13:55 ==
LOC: NEPC 09:35 → NEDA 13:47 → NEPGCP 16:07
PROVIDERS: ADMIT Hospitalist; ATTEND Hospitalist
DX: F02.80 Dementia in other diseases classified elsewhere, unspecified severity, without behavioral disturbance, psychotic disturbance, mood disturbance, and anxiety (principal); G30.9 Alzheimer's disease, unspecified; N39.0 Urinary tract infection, site not specified; B96.20 Unspecified Escherichia coli [E. coli] as the cause of diseases classified elsewhere; I10 Essential (primary) hypertension; E78.5 Hyperlipidemia, unspecified; M17.12 Unilateral primary osteoarthritis, left knee; K57.92 Diverticulitis of intestine, part unspecified, without perforation or abscess without bleeding; R07.9 Chest pain, unspecified; Z95.5 Presence of coronary angioplasty implant and graft
CPT/HCPCS: 70544; 70551; 70552; 71010; 80048; 80053; 81001; 82140; 82550; 82607; 84443; 84484; 85025; 87077; 87086; 87186; 93005; 95819; 96374; 96375; 96376; 97110; 97116; 97163; 99285; A9579; G0378; G8987; G8988; J0456; J0696; J2060; J7050